=== PATIENT | male | born 1995 | race Caucasian/White ===

== ENCOUNTER 2017-02-28 02:32 | Emergency (ER) | payer OTHER ==
[~2017-02-28] VITALS: Ht 182.9 cm; Wt 90.7 kg
[2017-02-28 02:35] VITALS: BP 138/86
[2017-02-28] MEDS ORDERED: LIDOCAINE 1% / SOD BICARB 8.4% 20 ML VIAL. IJ ONE (03:00)
--- NOTE | 2017-02-28 03:25 | PHYS DOC ---
Past Medical History Past Medical History: No Pertinent History Past Surgical History: No Surgical History Alcohol Use: None Drug Use: None Adult General Chief Complaint Chief Complaint: LACERATION/AVULSION [facility] HPI Patient is a 21 year old male who presents with laceration to left frontal forehead after trip and fall hitting his head against the wall. Has pain locally , achy, constant. Bleeding was controlled prehospital. He denies loss of consciousness, neck pain, dizziness, vision changes, nausea or vomiting, numbness, tingling, weakness, other injury. Review of Systems Review of Systems Constitutional: Denies fever or chills [] Eyes: Denies change in visual acuity, redness, or eye pain [] HENT: Denies nasal congestion or sore throat [] Respiratory: Denies cough or shortness of breath [] Cardiovascular: No additional information not addressed in HPI [] GI: Denies abdominal pain, nausea, vomiting, bloody stools or diarrhea [] : Denies dysuria or hematuria [] Musculoskeletal: Denies back pain or joint pain [] Integument: Denies rash or skin lesions [] Neurologic: Denies focal weakness or sensory changes [] Endocrine: Denies polyuria or polydipsia [] Current Medications Current Medications Current Medications Medications (Trade) Dose Ordered Sig/Bibi Start Time Stop Time Status Last Admin Dose Admin Diphtheria/ Tetanus/Acell Pertussis (Boostrix) 0.5 ml ONCE ONCE 02/28/17 03:30 02/28/17 03:31 DC 02/28/17 03:28 0.5 ML Lidocaine/Sodium Bicarbonate (Buffered Lidocaine 1%) 20 ml 1X ONCE 02/28/17 03:00 02/28/17 03:01 DC 02/28/17 02:55 20 ML Allergies Allergies Allergies Coded Allergies Type Severity Reaction Last Updated Verified No Known Drug Allergies 02/28/17 No Physical Exam Physical Exam Constitutional: Well developed, well nourished, no acute distress, non-toxic appearance. [] HENT: Normocephalic, bilateral external ears normal, oropharynx moist, no oral exudates, nose normal. No sorenson sign, hemotympanum, or raccoon eyes. Has 3.5 cm curved laceration to left frontal forehead, nonbleeding, locally tender, no visual or palpable skull abnormality. [] Eyes: PERRLA, EOMI, conjunctiva normal, no discharge. [] Neck: Normal range of motion, no tenderness, supple. [] Cardiovascular:Heart rate regular rhythm [] Lungs & Thorax: Bilateral breath sounds clear to auscultation [] Abdomen: Bowel sounds normal, soft, no tenderness. [] Skin: Warm, dry, no erythema, no rash. [] Back: No tenderness, no CVA tenderness. [] Extremities: No tenderness, ROM intact, no edema. [] Neurologic: Alert and oriented X 3, normal motor function, normal sensory function, no focal deficits noted. [] Psychologic: Affect normal, judgement normal, mood normal. [] Current Patient Data Vital Signs Vital Signs Date Time Temp Pulse Resp B/P (MAP) Pulse Ox O2 Delivery O2 Flow Rate FiO2 02/28/17 02:35 98.5 106 20 138/86 (103) 96 Room Air 98.5 Course & Med Decision Making Course & Med Decision Making Pertinent Labs and Imaging studies reviewed. (See chart for details) Laceration repaired without incident. Discussed supportive care. Return precautions given. He understands and agrees with plan. Dragon Disclaimer Dragon Disclaimer This electronic medical record was generated, in whole or in part, using a voice recognition dictation system. Laceration Repair Lac Repair Indication: Left forehead laceration Procedure: The patient was placed in the appropriate position and anesthesia around the laceration was lidocaine buffered 1%, 6 mL. The area was then cleaned with normal saline. The laceration was closed with Vicryl 5-0, #5 simple interrupted. Total repaired wound length: 3.5 centimeter. The patient tolerated the procedure well. Complications: None. Departure Departure Impression: Primary Impression: Closed head injury Additional Impression: Scalp laceration Disposition: 01 HOME, SELF-CARE Condition: STABLE Referrals: NO PCP (PCP) Patient Instructions: Head Injury, Adult, [id number], Sutured Wound Care, [id number] Additional Instructions: Your suture should be removed within 7 days. Take Tylenol or ibuprofen as needed for pain. Return for any concerns. Problem Qualifiers Primary Impression: Closed head injury Encounter type: initial encounter Qualified Codes: S09.90XA - Unspecified injury of head, initial encounter Additional Impression: Scalp laceration Encounter type: initial encounter Qualified Codes: S01.01XA - Laceration without foreign body of scalp, initial encounter Milla FINK MD Feb 28, 2017 03:25
[2017-02-28] MEDS ORDERED: DIPHTH,PERTUSS(ACELL),TET TOX 0.5 ML DISP.SYRIN. VAX IM ONE (03:30)
== END 2017-02-28 03:51 | disposition home or self-care (01) ==
LOC: ER 02:32
DX: S01.01XA Laceration without foreign body of scalp, initial encounter (principal); S09.90XA Unspecified injury of head, initial encounter; W01.0XXA Fall on same level from slipping, tripping and stumbling without subsequent striking against object, initial encounter; Y93.89 Activity, other specified; Y92.89 Other specified places as the place of occurrence of the external cause; Y99.8 Other external cause status
CPT/HCPCS: 12002; 90471; 90715; 99283-25